=== PATIENT | male | born 1995 | race Caucasian/White ===

== ENCOUNTER 2016-03-03 19:14 | Emergency (ER) | payer OTHER ==
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
--- NOTE | 2016-03-06 01:13 | ED MAR SUMMARY ---
..... Medication Administration Record [facility] [address] [place] [address] Patient: BRET HANSON Visit ID: [id number] 20y, M Weight: 72.5 kg Height/Length: 71 in BMI: 22.3 ALLERGIES: Sulfa Antibiotics Start 19:31 03/03/2016 Keiry Bazan,, Stop 21:15 03/03/2016 Keiry Bazan, Medication Administered: IV NS (SALINE), Dose: IV Fluids over 1 hour(s), Rate: 1000 mL/hr, Dispensed: 1000 mL bag, Site: #1 right AC. Medication Ordered: IV NS with Normal Saline 1 Liter: initial bolus 1000 mL (1000 mL/hr), then 1000 mL/hr for X1 (NOW). Given 19:34 03/03/2016 Keiry Bazan, Medication Administered: ZOFRAN [IVP] (ONDANSETRON HCL), Dose: 4 mg IVP over 1 minute(s), Site: #1 right AC. Medication Ordered: Zofran IV 4 mg (NOW). Given 19:41 03/03/2016 Keiry Bazan, Medication Administered: [id number] PERTUSSIS [IM], Dose: 0.5 mL IM. Medication Ordered: Bdgmbuz-Bdvicv-Oyznh Pertussis IM 0.5 mL (NOW, per protocol). Given 20:27 03/03/2016 Keiry Bazan, Medication Administered: MORPHINE [IVP], Dose: 4 mg IVP over 1 minute(s), Site: #1 right AC. Medication Ordered: Morphine IV 4 mg (HIGH ALERT MEDICATION, NOW).
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
--- NOTE | 2016-03-06 01:13 | ED MED RECONCILIATION SUMMARY ---
Patient: BRET HANSON Medication Reconciliation Report [facility] VisitID: [id number] [place] [address] 20y, M Registration Date/Time: 03/03/2016 Weight: 72.5 kg Height/Length: 71 in. BMI: 22.3 ALLERGIES: Sulfa Antibiotics The patient's Home Medications are listed below: NONE. The source(s) of the original Home Medication information: patient The following Medications were given to the patient in the Emergency Department: IV NS IV Fluids bolus 0, then 1000 mL/hr, administered: 03/03/2016 7:31:00 PM Zofran [IVP] IVP 4 mg, administered: 03/03/2016 7:34:00 PM [id number] PERTUSSIS [IM] IM 0.5 mL, administered: 03/03/2016 7:41:00 PM Morphine [IVP] IVP 4 mg, administered: 03/03/2016 8:27:00 PM The following Medications were prescribed to the patient: Keflex 500 mg: take 1 capsule orally every 6 hours for 7 days. No refill. Substitution is permissible. -- Arun Tobias Dr. Hydrocodone/APAP 5mg / 325mg: take 1 orally every 6 hours as needed for pain. Dispense fifteen (15). No refill. -- Arun Tobias Dr.
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
--- NOTE | 2016-03-06 01:13 | ED MAR SUMMARY ---
..... Medication Administration Record [facility] [address] [place] [address] Patient: BRET HANSON Visit ID: [id number] 20y, M Weight: 72.5 kg Height/Length: 71 in BMI: 22.3 ALLERGIES: Sulfa Antibiotics Start 19:31 03/03/2016 Keiry Bazan,, Stop 21:15 03/03/2016 Keiry Bazan, Medication Administered: IV NS (SALINE), Dose: IV Fluids over 1 hour(s), Rate: 1000 mL/hr, Dispensed: 1000 mL bag, Site: #1 right AC. Medication Ordered: IV NS with Normal Saline 1 Liter: initial bolus 1000 mL (1000 mL/hr), then 1000 mL/hr for X1 (NOW). Given 19:34 03/03/2016 Keiry Bazan, Medication Administered: ZOFRAN [IVP] (ONDANSETRON HCL), Dose: 4 mg IVP over 1 minute(s), Site: #1 right AC. Medication Ordered: Zofran IV 4 mg (NOW). Given 19:41 03/03/2016 Keiry Bazan, Medication Administered: YSHEIFR-HMQESU-FOVKO PERTUSSIS [IM], Dose: 0.5 mL IM. Medication Ordered: Vunlytx-Enregw-Xbobl Pertussis IM 0.5 mL (NOW, per protocol). Given 20:27 03/03/2016 Keiry Bazan, Medication Administered: MORPHINE [IVP], Dose: 4 mg IVP over 1 minute(s), Site: #1 right AC. Medication Ordered: Morphine IV 4 mg (HIGH ALERT MEDICATION, NOW).
--- NOTE | 2016-03-06 01:13 | ED MED RECONCILIATION SUMMARY ---
Patient: BRET HANSON Medication Reconciliation Report [facility] VisitID: [id number] [place] [address] 20y, M Registration Date/Time: 03/03/2016 Weight: 72.5 kg Height/Length: 71 in. BMI: 22.3 ALLERGIES: Sulfa Antibiotics The patient's Home Medications are listed below: NONE. The source(s) of the original Home Medication information: patient The following Medications were given to the patient in the Emergency Department: IV NS IV Fluids bolus 0, then 1000 mL/hr, administered: 03/03/2016 7:31:00 PM Zofran [IVP] IVP 4 mg, administered: 03/03/2016 7:34:00 PM [id number] PERTUSSIS [IM] IM 0.5 mL, administered: 03/03/2016 7:41:00 PM Morphine [IVP] IVP 4 mg, administered: 03/03/2016 8:27:00 PM The following Medications were prescribed to the patient: Keflex 500 mg: take 1 capsule orally every 6 hours for 7 days. No refill. Substitution is permissible. -- Arun Tobias Dr. Hydrocodone/APAP 5mg / 325mg: take 1 orally every 6 hours as needed for pain. Dispense fifteen (15). No refill. -- Arun Tobias Dr.
== END 2016-03-03 21:15 | disposition home or self-care (01) ==
LOC: ED SRH 19:14
DX: S41.031A Puncture wound without foreign body of right shoulder, initial encounter (principal); X93.XXXA Assault by handgun discharge, initial encounter; Y93.9 Activity, unspecified; Y92.009 Unspecified place in unspecified non-institutional (private) residence as the place of occurrence of the external cause; Y99.9 Unspecified external cause status; F17.200 Nicotine dependence, unspecified, uncomplicated; Z88.2 Allergy status to sulfonamides; Z23 Encounter for immunization